=== PATIENT | male | born 1985 | race Hispanic/Latino ===

== ENCOUNTER 2018-05-30 02:19 | Emergency (ER) | payer OTHER ==
[~2018-05-30 02:19] MED LIST: DOXY100T2 PO; LISI1TAB13 PO; METF-446 PO
[2018-05-30] MEDS ORDERED: ACETAMINOPHEN-CODEINE 300/30MG TAB ONE (03:34)
[2018-05-30] MEDS ORDERED: KETOROLAC TROMETHAMINE 60 MG/2 ML VIAL ONE (03:34)
[2018-05-30] MEDS ORDERED: CYCLOBENZAPRINE HCL 10 MG TABLET ONE (03:56)
== END 2018-05-30 04:05 | disposition home or self-care (01) ==
LOC: EDH 02:19
DX: M54.5 Low back pain (principal); I10 Essential (primary) hypertension; E11.9 Type 2 diabetes mellitus without complications
CPT/HCPCS: 96372; 99283; J1885